=== PATIENT | female | born 1995 | race African-American/Black ===

== ENCOUNTER 2020-07-18 12:43 | Outpatient (CLI) | payer OTHER, SELFPAY ==
--- NOTE | ~2020-07-18 | US_ITS ---
EXAMINATION: US pelvic complete w TV DATE: 07/18/2020 13:26 INDICATION: Pelvic pain Comparison:No prior studies for comparison. TECHNIQUE: Multiple transabdominal and endovaginal sonographic images of the pelvis performed. FINDINGS: The uterus measures 6.4 x 3.7 x 4.8 cm. The endometrial complex measures 4 mm. The right ovary measures 3.6 x 2.7 x 2.8 cm and the left ovary measures 4.1 x 3.4 x 2.5 cm. There ar e small follicles in each ovary. There is no free fluid in the pelvis. There are no abnormal masses seen on either side. IMPRESSION: 1. Normal pelvic ultrasound. 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
--- NOTE | ~2020-07-18 | XR_ITS ---
XR abdomen/kub 1V 07/18/2020 13:29 INDICATION: Ovarian cyst. Bowel obstruction. TECHNIQUE: KUB COMPARISON: No prior studies for comparison. FINDINGS: Bowel gas pattern is normal. Moderate colonic fecal loading. There is no evidence of free a ir, mass, organomegaly, ascites or obstruction. No abnormal calculi are seen. The bones appear inta ct. IMPRESSION: 1: No acute abdominal abnormality identified. 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
== END 2020-07-18 12:44 | disposition home or self-care (01) ==
LOC: ANHIMG 12:55
PROVIDERS: PCP Emergency Medicine; Visit Provider Emergency Medicine
DX: N83.202 Unspecified ovarian cyst, left side (principal); K56.609 Unspecified intestinal obstruction, unspecified as to partial versus complete obstruction
CPT/HCPCS: 74018; 76830; 76856